=== PATIENT | female | born 1965 | race Caucasian/White ===

== ENCOUNTER 2023-06-08 19:16 | Inpatient (IN) | payer MEDICARE, OTHER ==
[~2023-06-08] VITALS: Ht 165.1 cm; Wt 102.1 kg
[2023-06-08 21:11] LABS: APPEARANCE,URINE SLIGHTLY CLOUDY (CLEAR); BILIRUBIN,URINE NEGATIVE (NEGATIVE); BLOOD, URINE NEGATIVE Ery/uL (NEGATIVE); COLOR,URINE YELLOW (YELLOW); KETONES,URINE NEGATIVE (NEGATIVE); LEUKOCYTE ESTERASE ,URINE NEGATIVE (NEGATIVE); NITRITE, URINE NEGATIVE (NEGATIVE); PROTEIN,URINE NEGATIVE (NEGATIVE); UGLUCOSE NEGATIVE (NEGATIVE); UROBILINOGEN,URINE 0.2 EU/dL (0.2)
[2023-06-08 21:24] LABS: AMPHETAMINE, URINE NEGATIVE (NEGATIVE); BARBITURATE, URINE NEGATIVE (NEGATIVE); BENZODIAZEPINE, URINE NEGATIVE (NEGATIVE); CANNABINOID, URINE NEGATIVE (NEGATIVE); COCCAINE, URINE NEGATIVE (NEGATIVE); OPIATE, URINE NEGATIVE (NEGATIVE); PHENCYCLIDINE SCREEN,URINE NEGATIVE (NEGATIVE)
[2023-06-08 21:30] LABS: ADD URINE CULTURE YES; BACTERIA,URINE 3+ /HPF (None Seen); RBC,URINE 0-2 /HPF (0-2); WBC,URINE 0-2 /HPF (0-3)
[2023-06-08 21:31] LABS: BASOPHILS % (AUTO) 0.4 % (0.0-2.0); EOSINOPHILS # (AUTO) 0.1 K/uL (0.0-0.7); EOSINOPHILS % (AUTO) 0.7 % (0.0-6.0); HEMATOCRIT 37 % (33-45); HEMOGLOBIN 12.3 g/dL (11.5-14.8); LYMPHOCYTES # (AUTO) 2.3 K/uL (0.8-4.8); LYMPHOCYTES % (AUTO) 22.6 % (20.0-44.0); MEAN CORPUSCULAR HEMOGLOBIN 28 PG (26.0-33.0); MEAN CORPUSCULAR HGB CONC 34 g/dl (31.0-36.0); MEAN CORPUSCULAR VOLUME 83 fL (82-100); MONOCYTES # (AUTO) 0.8 K/uL (0.1-1.30); MONOCYTES % (AUTO) 7.5 % (2.0-12.0); NEUTROPHILS # (AUTO) 7.1 K/uL (1.8-8.9); NEUTROPHILS % (AUTO) 68.8 % (43.0-81.0); PLATELET COUNT (AUTO) 353 K/uL (150-450); RED BLOOD CELL COUNT(AUTO) 4.41 MIL/uL (4.0-5.2); RED CELL DISTRIBUTION WIDTH 14.5 % (11.5-15.0); WHITE BLOOD COUNT (AUTO) 10.3 K/uL (4.3-11.0)
[2023-06-08 22:02] LABS: ALANINE AMINOTRANSFERASE 27 U/L (12-78); ALBUMIN 3.1 g/dL (3.4-5.0); ALCOHOL, BLOOD < 3 mg/dL (0-10); ALKALINE PHOSPHATASE 76 U/L (46-116); ASPARTATE AMINOTRANSFERASE 13 U/L (15-37); BILIRUBIN,DIRECT 0.1 mg/dL (0.0-0.2); BILIRUBIN,TOTAL 0.4 mg/dL (0.2-1.0); CALCIUM, SERUM 8.8 mg/dL (8.5-10.1); CARBON DIOXIDE 26 mmol/L (21-32); CHLORIDE 103 mmol/L (98-107); GLUCOSE 152 mg/dL (74-106); SODIUM SERUM 137 mmol/L (136-145); TOTAL PROTEIN, SERUM 7.2 g/dL (6.4-8.2); UREA NITROGEN, BLOOD 8 mg/dL (7-18)
[2023-06-08 22:04] LABS: ACETAMINOPHEN <10 ug/ml (10-30); SALICYLATE 1.8 mg/dL (2.8-20.0)
[2023-06-08] MEDS ORDERED: POTASSIUM CHLORIDE 20 MEQ TAB.PRT.SR PO ONE (22:57)
[2023-06-08] MEDS: POTASSIUM CHLORIDE 20 MEQ TAB.PRT.SR PO ONE (23:04)
[2023-06-09] MEDS ORDERED: QUETIAPINE FUMARATE 25 MG TABLET ONE (02:19)
[2023-06-09] MEDS ORDERED: LORAZEPAM 0.5 MG TABLET ONE (02:19)
[2023-06-09] MEDS: QUETIAPINE FUMARATE 25 MG TABLET PO ONE (02:21)
[2023-06-09] MEDS: LORAZEPAM 1 MG TABLET PO ONE (02:21)
[2023-06-09] MEDS ORDERED: TRAZ-182 PO (02:45)
[2023-06-09] MEDS ORDERED: LISI20TA31 PO (02:45)
[2023-06-09] MEDS ORDERED: TEMA15CA PO (02:45)
[2023-06-09] MEDS ORDERED: INSU100C10 SQ (02:45)
[2023-06-09] MEDS ORDERED: QUET25TA PO (02:45)
[2023-06-09] MEDS ORDERED: PANT40TA49 PO (02:45)
[2023-06-09] MEDS ORDERED: LORA-259 PO (02:45)
[2023-06-09 03:15] VITALS: BP 126/49; TEMP 98.3; O2SAT 95
[2023-06-09 03:24] VITALS: BP 126/49; TEMP 98.2; O2SAT 96
[2023-06-09] MEDS ORDERED: GABA-536 PO (03:29)
[2023-06-09] MEDS ORDERED: MAG HYDROX/AL HYDROX/SIMETH 30 ML UDC PO PRN (03:30)
[2023-06-09] MEDS ORDERED: DULO60CA64 PO (03:30)
[2023-06-09] MEDS: BLOOD SUGAR DIAGNOSTIC 1 EACH STRIP IN ONE (04:20)
[2023-06-09] MEDS ORDERED: DEXTROSE 50%-WATER 50 ML DISP.SYRIN IV PRN (05:30)
[2023-06-09] MEDS: BLOOD SUGAR DIAGNOSTIC 1 EACH STRIP IN SCH (07:30)
[2023-06-09 08:00] VITALS: BP 125/71; TEMP 98.6; O2SAT 97
[2023-06-09] MEDS: LORAZEPAM 1 MG TABLET PO PRN (10:35)
[2023-06-09] MEDS: ARIPIPRAZOLE 5 MG TABLET PO SCH (12:11)
[2023-06-09] MEDS: GABAPENTIN 100 MG CAPSULE PO SCH (12:11)
[2023-06-09] MEDS: DULOXETINE HCL 30 MG CAPSULE.DR PO SCH (12:11)
[2023-06-09] MEDS: ACETAMINOPHEN 325 MG TABLET PO PRN (12:28)
[2023-06-09 16:00] VITALS: BP 118/54; TEMP 97.8; O2SAT 97
[2023-06-09] MEDS: INSULIN REGULAR, HUMAN 100 UNIT/ML 3 ML VIAL SQ PRN (21:15)
[2023-06-10 08:00] VITALS: BP 131/73; TEMP 97.9; O2SAT 95
[2023-06-10] MEDS: PANTOPRAZOLE 40 MG TABLET.DR PO SCH (08:22)
[2023-06-10] MEDS: LISINOPRIL (20MG) 20 MG TABLET PO SCH (08:39)
[2023-06-10 08:42] LABS: BASOPHILS # (AUTO) 0.1 K/uL (0.0-0.2); BASOPHILS % (AUTO) 0.7 % (0.0-2.0); EOSINOPHILS # (AUTO) 0.1 K/uL (0.0-0.7); EOSINOPHILS % (AUTO) 1.5 % (0.0-6.0); HEMATOCRIT 36 % (33-45); HEMOGLOBIN 11.8 g/dL (11.5-14.8); LYMPHOCYTES # (AUTO) 1.8 K/uL (0.8-4.8); LYMPHOCYTES % (AUTO) 23.3 % (20.0-44.0); MEAN CORPUSCULAR HEMOGLOBIN 28 PG (26.0-33.0); MEAN CORPUSCULAR HGB CONC 33 g/dl (31.0-36.0); MEAN CORPUSCULAR VOLUME 84 fL (82-100); MONOCYTES # (AUTO) 0.6 K/uL (0.1-1.30); MONOCYTES % (AUTO) 7.7 % (2.0-12.0); NEUTROPHILS # (AUTO) 5.1 K/uL (1.8-8.9); NEUTROPHILS % (AUTO) 66.8 % (43.0-81.0); PLATELET COUNT (AUTO) 353 K/uL (150-450); RED BLOOD CELL COUNT(AUTO) 4.24 MIL/uL (4.0-5.2); RED CELL DISTRIBUTION WIDTH 14.1 % (11.5-15.0); WHITE BLOOD COUNT (AUTO) 7.6 K/uL (4.3-11.0)
[2023-06-10 08:57] LABS: CREATININE 0.8 mg/dL (0.6-1.3); POTASSIUM 4.1 mmol/L (3.5-5.1)
[2023-06-10 16:00] VITALS: BP 110/50; TEMP 98; O2SAT 96
[2023-06-11 08:00] VITALS: BP 125/65; TEMP 98.7; O2SAT 98
[2023-06-11 16:00] VITALS: BP 113/56; TEMP 98.7; O2SAT 99
[2023-06-11] MEDS: LORAZEPAM 1 MG TABLET PO PRN (19:36)
[2023-06-11 21:03] VITALS: BP 134/63; TEMP 98.1; O2SAT 96
[2023-06-12] MEDS: ZOLPIDEM TARTRATE 5 MG TABLET PO PRN (01:16)
[2023-06-12 08:00] VITALS: BP 142/79; TEMP 97.8; O2SAT 98
[2023-06-12 16:00] VITALS: BP 111/60; TEMP 98.6; O2SAT 96
[2023-06-12 20:45] VITALS: BP 96/52; TEMP 97.7; O2SAT 97
[2023-06-13 08:00] VITALS: BP 132/61; TEMP 98.8; O2SAT 94
[2023-06-13 16:00] VITALS: BP 118/60; TEMP 98.7; O2SAT 98
[2023-06-13 20:29] VITALS: BP 111/53; TEMP 98.5; O2SAT 95
[2023-06-14 08:00] VITALS: BP 127/58; TEMP 97.8; O2SAT 97
[2023-06-14 16:00] VITALS: BP 109/66; TEMP 98.6; O2SAT 99
[2023-06-14 20:00] VITALS: BP 113/62; TEMP 98.2; O2SAT 95
[2023-06-15 08:00] VITALS: BP 128/66; TEMP 97.6; O2SAT 98
[2023-06-15] MEDS: MAGNESIUM HYDROXIDE 30 ML UDC PO PRN (12:42)
[2023-06-15 16:00] VITALS: BP 121/62; TEMP 97.7; O2SAT 97
[2023-06-15 20:00] VITALS: BP 101/52; TEMP 98.4; O2SAT 97
[2023-06-16 08:00] VITALS: BP 112/57; TEMP 98.1; O2SAT 97
[2023-06-16 08:54] VITALS: BP 112/57
== END 2023-06-16 12:55 | disposition home or self-care (01) | DRG 885 ==
LOC: ER 19:26 → GPS 06-09 02:26
PROVIDERS: ADMIT Psychiatry & Neurology Psychiatry; ATTEND Nurse Practitioner Acute Care
DX: F31.5 Bipolar disorder, current episode depressed, severe, with psychotic features (principal); E87.6 Hypokalemia; I10 Essential (primary) hypertension; F41.9 Anxiety disorder, unspecified; Z20.822 Contact with and (suspected) exposure to COVID-19; Z73.6 Limitation of activities due to disability; F60.9 Personality disorder, unspecified; Z88.0 Allergy status to penicillin
CPT/HCPCS: 36415; 80048-TC; 80061-TC; 80076-TC; 81001; 82962-TC; 83690-TC; 85025-TC; 87081-TC; 87086-TC; G0480; J1815

== ENCOUNTER 2023-08-20 15:08 | Inpatient (IN) | payer MEDICARE, OTHER ==
[~2023-08-20] VITALS: Ht 165.1 cm; Wt 99.8 kg
[~2023-08-20 15:08] MED LIST: DULO60CA64 PO; GABA-536 PO; INSU100C10 SQ; LISI20TA31 PO; LORA-259 PO; PANT40TA49 PO; QUET25TA PO; TEMA15CA PO; TRAZ-182 PO
[2023-08-20] MEDS ORDERED: LISI10TA29 PO (16:46)
[2023-08-20] MEDS ORDERED: PALI156D IM (16:46)
[2023-08-20] MEDS ORDERED: ESCI5TAB PO (16:47)
[2023-08-20 16:51] LABS: BASOPHILS % (AUTO) 0.5 % (0.0-2.0); EOSINOPHILS # (AUTO) 0.1 K/uL (0.0-0.7); EOSINOPHILS % (AUTO) 0.6 % (0.0-6.0); HEMATOCRIT 34 % (33-45); HEMOGLOBIN 11.8 g/dL (11.5-14.8); LYMPHOCYTES # (AUTO) 1.8 K/uL (0.8-4.8); LYMPHOCYTES % (AUTO) 19.7 % (20.0-44.0); MEAN CORPUSCULAR HEMOGLOBIN 29 PG (26.0-33.0); MEAN CORPUSCULAR HGB CONC 34 g/dl (31.0-36.0); MEAN CORPUSCULAR VOLUME 83 fL (82-100); MONOCYTES # (AUTO) 0.7 K/uL (0.1-1.30); MONOCYTES % (AUTO) 7.6 % (2.0-12.0); NEUTROPHILS # (AUTO) 6.4 K/uL (1.8-8.9); NEUTROPHILS % (AUTO) 71.6 % (43.0-81.0); PLATELET COUNT (AUTO) 382 K/uL (150-450); RED BLOOD CELL COUNT(AUTO) 4.12 MIL/uL (4.0-5.2); RED CELL DISTRIBUTION WIDTH 15.5 % (11.5-15.0)
[2023-08-20 17:13] LABS: AMPHETAMINE, URINE NEGATIVE (NEGATIVE); BARBITURATE, URINE NEGATIVE (NEGATIVE); BENZODIAZEPINE, URINE NEGATIVE (NEGATIVE); CANNABINOID, URINE NEGATIVE (NEGATIVE); COCCAINE, URINE NEGATIVE (NEGATIVE); OPIATE, URINE NEGATIVE (NEGATIVE); PHENCYCLIDINE SCREEN,URINE NEGATIVE (NEGATIVE)
[2023-08-20 17:14] LABS: ALANINE AMINOTRANSFERASE 30 U/L (12-78); ALBUMIN 3.3 g/dL (3.4-5.0); ALKALINE PHOSPHATASE 76 U/L (46-116); ASPARTATE AMINOTRANSFERASE 8 U/L (15-37); BILIRUBIN,DIRECT 0.1 mg/dL (0.0-0.2); BILIRUBIN,TOTAL 0.4 mg/dL (0.2-1.0); CALCIUM, SERUM 9.3 mg/dL (8.5-10.1); CARBON DIOXIDE 27 mmol/L (21-32); CHLORIDE 104 mmol/L (98-107); CREATININE 0.9 mg/dL (0.6-1.3); GLUCOSE 101 mg/dL (74-106); POTASSIUM 3.9 mmol/L (3.5-5.1); SODIUM SERUM 140 mmol/L (136-145); TOTAL PROTEIN, SERUM 7.2 g/dL (6.4-8.2); UREA NITROGEN, BLOOD 16 mg/dL (7-18)
[2023-08-20 17:17] LABS: ACETAMINOPHEN 0 ug/ml (10-30); ALCOHOL, BLOOD < 3 mg/dL (0-10); SALICYLATE 0.8 mg/dL (2.8-20.0)
[2023-08-20 17:30] LABS: APPEARANCE,URINE CLEAR (CLEAR); BILIRUBIN,URINE NEGATIVE (NEGATIVE); BLOOD, URINE NEGATIVE Ery/uL (NEGATIVE); COLOR,URINE YELLOW (YELLOW); KETONES,URINE NEGATIVE (NEGATIVE); LEUKOCYTE ESTERASE ,URINE TRACE (NEGATIVE); NITRITE, URINE NEGATIVE (NEGATIVE); PROTEIN,URINE NEGATIVE (NEGATIVE); UGLUCOSE NEGATIVE (NEGATIVE); UROBILINOGEN,URINE 0.2 EU/dL (0.2)
[2023-08-20 17:59] LABS: ADD URINE CULTURE YES; BACTERIA,URINE 2+ /HPF (None Seen); MUCUS,URINE Few /LPF (None Seen); RBC,URINE 0-2 /HPF (0-2)
[2023-08-21] MEDS ORDERED: LORAZEPAM 1 MG TABLET PO PRN (09:00)
[2023-08-21] MEDS ORDERED: MAG HYDROX/AL HYDROX/SIMETH 30 ML UDC PO PRN (09:00)
[2023-08-21] MEDS: BLOOD SUGAR DIAGNOSTIC 1 EACH STRIP IN ONE (09:25)
[2023-08-21] MEDS: DULOXETINE HCL 30 MG CAPSULE.DR PO SCH (10:28)
[2023-08-21] MEDS: GABAPENTIN 100 MG CAPSULE PO SCH (12:31)
[2023-08-21] MEDS: SULFAMETH/TRIMETH 800/160 MG 1 UDTAB TABLET PO SCH (13:52)
[2023-08-21] MEDS: QUETIAPINE FUMARATE 25 MG TABLET PO SCH ×2 (16:56→21:14)
[2023-08-22] MEDS: ACETAMINOPHEN 325 MG TABLET PO PRN (03:20)
[2023-08-22 08:50] LABS: CHOLESTEROL 139 mg/dL (<200); HDL CHOLESTEROL 49 mg/dL (40-60); LDL 84 mg/dL (0-99); TRIGLYCERIDES 33 mg/dL (30-150)
[2023-08-22 09:59] LABS: ALBUMIN 3.1 g/dL (3.4-5.0); BILIRUBIN,TOTAL 0.5 mg/dL (0.2-1.0); CALCIUM, SERUM 9.5 mg/dL (8.5-10.1); CREATININE 0.9 mg/dL (0.6-1.3); POTASSIUM 3.4 mmol/L (3.5-5.1); TOTAL PROTEIN, SERUM 6.8 g/dL (6.4-8.2)
[2023-08-22 16:00] VITALS: BP 135/77; TEMP 98.6; O2SAT 97
[2023-08-22] MEDS: MAGNESIUM HYDROXIDE 30 ML UDC PO PRN (17:38)
[2023-08-22 20:27] VITALS: BP 123/68; TEMP 98.3; O2SAT 98
[2023-08-23 08:00] VITALS: BP_SYST 120; BP_SYST 125; BP_DIAS 67; BP_DIAS 82; TEMP 97.9; TEMP 98; O2SAT 98
[2023-08-23] MEDS: hydrOXYzine PAMOATE 25 MG CAPSULE PO PRN (10:09)
[2023-08-23 16:00] VITALS: BP 130/66; TEMP 97.7; O2SAT 96
[2023-08-23] MEDS: QUETIAPINE FUMARATE 25 MG TABLET PO SCH (16:30)
[2023-08-23 20:00] VITALS: BP 126/62; TEMP 97.9; O2SAT 97
[2023-08-23] MEDS: ZOLPIDEM TARTRATE 5 MG TABLET PO PRN (23:57)
[2023-08-24 09:06] VITALS: BP 102/67; TEMP 98; O2SAT 96
[2023-08-24 16:00] VITALS: BP 137/69; TEMP 98; O2SAT 97
[2023-08-24 20:00] VITALS: BP 121/69; TEMP 98.3; O2SAT 97
[2023-08-24] MEDS: QUETIAPINE FUMARATE 100 MG TABLET PO SCH (21:29)
[2023-08-25 08:00] VITALS: BP 97/64; TEMP 98; O2SAT 96
[2023-08-25 16:00] VITALS: BP 138/64; TEMP 97.7; O2SAT 96
[2023-08-25 20:00] VITALS: BP 144/65; TEMP 97.9; O2SAT 96
[2023-08-26 08:00] VITALS: BP 124/108; TEMP 97.8; O2SAT 97
[2023-08-26 16:12] VITALS: BP 132/59; TEMP 97.9; O2SAT 96
[2023-08-26] MEDS: QUETIAPINE FUMARATE 100 MG TABLET PO SCH (21:12)
[2023-08-26 21:29] VITALS: BP 130/61; TEMP 98.1; O2SAT 96
[2023-08-27 08:00] VITALS: BP 113/72; TEMP 98.6; O2SAT 97
[2023-08-27 16:00] VITALS: BP 132/84; TEMP 98.4; O2SAT 99
[2023-08-27 21:03] VITALS: BP 114/54; TEMP 98.2; O2SAT 98
[2023-08-28 08:00] VITALS: BP 115/52; TEMP 98.6; O2SAT 97
[2023-08-28 16:00] VITALS: BP 111/61; TEMP 98; O2SAT 100
[2023-08-28 20:49] VITALS: BP 138/77; TEMP 97.8; O2SAT 96
[2023-08-29 08:00] VITALS: BP 129/74; TEMP 98.7; O2SAT 98
[2023-08-29] MEDS: QUETIAPINE FUMARATE 25 MG TABLET PO SCH (10:02)
[2023-08-29 16:00] VITALS: BP 123/57; TEMP 97.9; O2SAT 98
[2023-08-29 20:43] VITALS: BP 107/69; TEMP 97.6; O2SAT 96
[2023-08-29] MEDS: QUETIAPINE FUMARATE 100 MG TABLET PO SCH (21:09)
[2023-08-30 08:00] VITALS: BP 140/90; TEMP 97.9; O2SAT 97
[2023-08-30] MEDS: GABAPENTIN 100 MG CAPSULE PO SCH (12:15)
[2023-08-30 16:00] VITALS: BP 135/78; TEMP 98.2; O2SAT 97
[2023-08-30 20:00] VITALS: BP 121/50; TEMP 98; O2SAT 97
[2023-08-31 08:00] VITALS: BP 112/54; TEMP 97.8; O2SAT 97
== END 2023-08-31 01:30 | DRG 885 ==
LOC: ER 15:13 → GPS 08-21 07:42 → GPSOV 08-21 22:32 → GPS 08-22 12:42
PROVIDERS: ADMIT Psychiatry & Neurology Psychiatry
DX: F31.5 Bipolar disorder, current episode depressed, severe, with psychotic features (principal); N39.0 Urinary tract infection, site not specified; F41.9 Anxiety disorder, unspecified; E11.9 Type 2 diabetes mellitus without complications; I10 Essential (primary) hypertension; Z20.822 Contact with and (suspected) exposure to COVID-19; Z88.0 Allergy status to penicillin; Z73.6 Limitation of activities due to disability; F60.3 Borderline personality disorder
CPT/HCPCS: 36415; 80048-TC; 80053-TC; 80061-TC; 80076-TC; 81001; 82962-TC; 85025-TC; G0480; Q0177